=== PATIENT | male | born 1945 | race Caucasian/White ===

== ENCOUNTER 2021-02-20 12:11 | Day surgery (SDC) | payer MEDICARE, OTHER ==
[~2021-02-20] VITALS: Ht 188 cm; Wt 103.7 kg
[2021-02-20] MEDS ORDERED: ASPI81CH (12:41)
[2021-02-20] MEDS ORDERED: ABAT250V (12:42)
[2021-02-20] MEDS ORDERED: ATOR10 (12:42)
[2021-02-20] MEDS ORDERED: ST. JOSEPH ASPI81 MG (12:44)
[2021-02-20] MEDS ORDERED: Cleocin HCl150 MG (12:45)
[2021-02-20] MEDS ORDERED: DICLOFENAC SOD100 GM (12:46)
[2021-02-20] MEDS ORDERED: DOXE10 (12:47)
[2021-02-20] MEDS ORDERED: Norco 10-325 T1 EACH (12:48)
[2021-02-20] MEDS ORDERED: HYDCHL25 (12:48)
[2021-02-20] MEDS ORDERED: GABA300 (12:48)
[2021-02-20] MEDS ORDERED: INSULANI (12:49)
[2021-02-20] MEDS ORDERED: LANS30EC (12:49)
[2021-02-20] MEDS ORDERED: Amitiza8 MCG (12:49)
[2021-02-20] MEDS ORDERED: MORP15ER (12:50)
[2021-02-20] MEDS ORDERED: METF500 (12:50)
[2021-02-20] MEDS ORDERED: NOVOLOG FL100 UNIT/2 (12:50)
[2021-02-20] MEDS ORDERED: VALS80 (12:51)
== END 2021-02-20 13:46 | disposition home or self-care (01) ==
LOC: ORSCSDS 12:11
PROVIDERS: Student in an Organized Health Care Education/Training Program
PROC: 0DB58ZX Excision of Esophagus, Via Natural or Artificial Opening Endoscopic, Diagnostic (ICD-10-PCS; principal; 2021-02-20 13:30)
DX: K22.70 Barrett's esophagus without dysplasia (principal); K21.9 Gastro-esophageal reflux disease without esophagitis; K44.9 Diaphragmatic hernia without obstruction or gangrene; E11.9 Type 2 diabetes mellitus without complications; I10 Essential (primary) hypertension; G47.33 Obstructive sleep apnea (adult) (pediatric); E66.9 Obesity, unspecified; Z68.31 Body mass index [BMI] 31.0-31.9, adult; Z79.4 Long term (current) use of insulin; Z79.899 Other long term (current) drug therapy
CPT/HCPCS: 82947; 88305; J2704; J7120

== ENCOUNTER → 2021-05-10 | Outpatient (CLI) | payer MEDICARE, OTHER ==
[~2021-05-10] MED LIST: ABAT250V; ASPI81CH; ATOR10; Amitiza8 MCG; Cleocin HCl150 MG; DICLOFENAC SOD100 GM; DOXE10; GABA300; HYDCHL25; INSULANI; LANS30EC; METF500; MORP15ER; NOVOLOG FL100 UNIT/2; Norco 10-325 T1 EACH; ST. JOSEPH ASPI81 MG; VALS80
== END ==
LOC: LAB SHORT 14:00 → LAB 14:00
DX: R07.89 Other chest pain (principal)
CPT/HCPCS: 84484

== ENCOUNTER 2021-08-27 09:17 | Day surgery (SDC) | payer MEDICARE, OTHER ==
[~2021-08-27] VITALS: Ht 185.4 cm; Wt 105.0 kg
[~2021-08-27 09:17] MED LIST changes: -Amitiza8 MCG; +Amitiza8 MCG PO; +BASAGLAR K100 UNIT/1 SC; -METF500; +METF500 PO; -MORP15ER; +MORP15ER PO; +NITR.4SL SL; +PROZAC40 MG PO; -VALS80; +VALS80 PO
--- NOTE | 2021-08-27 13:23 | NUR ---
10CC AIR REMOVED FROM R WRIST TR BAND. -BLEEDING OR SWELLING.
--- NOTE | 2021-08-27 14:13 | NUR ---
R WRIST TR BAND REMOVED. PUNCTURE AREA CLEANED /C NS AND CLOTH DOT DRSG PLACED. R LOWER ARM SPLINT REAPPLIED.
--- NOTE | 2021-08-27 14:14 | NUR ---
PT AND VERBALIZED UNDERSTANDING OF WRITTEN AND VERBAL D/C INST. IV REMOVED. PT TAKEN OUT OF THE HRT CENTER VIA W/C.
== END 2021-08-27 14:15 | disposition home or self-care (01) ==
LOC: MHTC 09:17
DX: I25.118 Atherosclerotic heart disease of native coronary artery with other forms of angina pectoris (principal); I10 Essential (primary) hypertension; E11.9 Type 2 diabetes mellitus without complications; E78.5 Hyperlipidemia, unspecified; N40.0 Benign prostatic hyperplasia without lower urinary tract symptoms; Z79.82 Long term (current) use of aspirin; Z79.84 Long term (current) use of oral hypoglycemic drugs
CPT/HCPCS: 76937; 93454; 99152; 99153; C1769; C1887; C1894; J1200; J1644; J1720; J2250; J3010; J7030; J7050; Q9967

== ENCOUNTER → 2021-10-23 | Outpatient (CLI) | payer MEDICARE, OTHER | END | disposition home or self-care (01) | LOC: LAB SHORT 15:20 | DX: L97.509 Non-pressure chronic ulcer of other part of unspecified foot with unspecified severity (principal) | CPT/HCPCS: 87070; 87075; 87077; 87147; 87186; 87205 ==

== ENCOUNTER → 2023-09-09 | Outpatient (CLI) | payer MEDICARE, OTHER | LOC: LAB SHORT 10:10 → LAB 10:10 | DX: M96.0 Pseudarthrosis after fusion or arthrodesis (principal); R20.0 Anesthesia of skin; E11.51 Type 2 diabetes mellitus with diabetic peripheral angiopathy without gangrene; E11.42 Type 2 diabetes mellitus with diabetic polyneuropathy | CPT/HCPCS: 88300 ==

== ENCOUNTER 2024-05-25 13:03 | Day surgery (SDC) | payer MEDICARE, OTHER ==
[~2024-05-25] VITALS: Ht 185.4 cm; Wt 97.5 kg
[2024-05-25 13:42] VITALS: BP 137/67
== END 2024-05-25 14:00 | disposition home or self-care (01) ==
LOC: ORSCSDS 13:03
DX: K22.70 Barrett's esophagus without dysplasia (principal); Z53.9 Procedure and treatment not carried out, unspecified reason
CPT/HCPCS: 82947

== ENCOUNTER 2024-06-01 08:19 | Day surgery (SDC) | payer MEDICARE, OTHER ==
[~2024-06-01] VITALS: Ht 185.4 cm; Wt 97.2 kg
[~2024-06-01 08:19] MED LIST changes: +Lactated Ringer's 1,000 ML IV ONE
[2024-06-01] MEDS ORDERED: Lactated Ringer's 1,000 ML IV ONE (09:18)
[2024-06-01] MEDS ORDERED: propofoL 50 ML IV ONE (09:24)
[2024-06-01 10:32] VITALS: BP 111/67
== END 2024-06-01 10:20 | disposition home or self-care (01) ==
LOC: ORSCSDS 08:19
PROVIDERS: Internal Medicine Gastroenterology
PROC: 0DB58ZX Excision of Esophagus, Via Natural or Artificial Opening Endoscopic, Diagnostic (ICD-10-PCS; principal; 2024-06-01 09:30)
DX: K22.70 Barrett's esophagus without dysplasia (principal); G47.33 Obstructive sleep apnea (adult) (pediatric); I10 Essential (primary) hypertension; E11.9 Type 2 diabetes mellitus without complications; K21.9 Gastro-esophageal reflux disease without esophagitis; Z79.82 Long term (current) use of aspirin; Z79.4 Long term (current) use of insulin; Z79.84 Long term (current) use of oral hypoglycemic drugs; Z79.899 Other long term (current) drug therapy
CPT/HCPCS: 82947; 88305; J2704; J7120

== ENCOUNTER → 2024-07-26 | Outpatient (CLI) | payer MEDICARE ==
[~2024-07-26] MED LIST changes: -Lactated Ringer's 1,000 ML IV ONE
[2024-07-26 20:01] LABS: CHOL/HDL RATIO 2.3; Cholesterol 133 mg/dL (50-200); HDL Cholesterol 58 mg/dL (>39); LDL/HDL RATIO 0.9; Low Density Lipoprotein Chol 50 mg/dL (0-110); Triglycerides 124 mg/dL (30-160); Very Low Density Lipoprot Chol 24 mg/dL (6-32)
== END ==
LOC: LAB SHORT 18:06 → LAB 18:06
PROVIDERS: Student in an Organized Health Care Education/Training Program
DX: E11.9 Type 2 diabetes mellitus without complications (principal)
CPT/HCPCS: 80061

== ENCOUNTER 2025-05-23 15:25 | Emergency (ER) | payer MEDICARE, OTHER ==
[~2025-05-23] VITALS: Ht 185.4 cm; Wt 100.2 kg
[2025-05-23 16:13] LABS: BASOPHILS ABSOLUTE AUTO 0.05 K/mm3 (0.00-0.23); BASOPHILS PERCENT AUTO 1 % (0-2); EOSINOPHILS ABSOLUTE AUTO 0.34 K/mm3 (0.00-0.68); EOSINOPHILS PERCENT AUTO 4 % (0-6); Hematocrit 36.7 % (37.0-53.0); Hemoglobin 12.2 g/dL (13.5-17.5); IMMATURE GRAN ABSOLUTE AUTO 0.01 K/mm3 (0.00-0.10); IMMATURE GRAN PERCENT AUTO 0 % (0-1); LYMPHOCYTES ABSOLUTE AUTO 2.19 K/mm3 (0.84-5.20); LYMPHOCYTES PERCENT AUTO 28 % (21-46); MONOCYTES ABSOLUTE AUTO 0.34 K/mm3 (0.16-1.47); MONOCYTES PERCENT AUTO 4 % (4-13); Mean Corpuscular HGB Conc 33.2 g/dL (31.5-36.5); Mean Corpuscular Volume 83 fL (80-100); NEUTROPHILS ABSOLUTE AUTO 4.98 K/mm3 (1.96-9.15); NEUTROPHILS PERCENT AUTO 63 % (41-73); NRBC ABSOLUTE 0.00 K/mm3 (0.00-0.02); NRBC Auto 0.0 /100 WBC (0.0-0.2); Platelet Count 187 K/mm3 (150-400); RDW Coefficient Variation 14.0 % (11.7-14.2); RDW Standard Deviation 42.3 fL (35.1-46.3)
[2025-05-23 16:44] LABS: Alanine Aminotransfer (ALT/SGP 15.0 U/L (12-78); Albumin, Blood 3.6 g/dL (3.4-5.0); Albumin/Globulin Ratio 0.9 (0.8-1.8); Anion Gap 5.0 mmol/L (3-11); Aspartate Aminotrans (AST/SGOT 9.0 U/L (12-37); Bilirubin, Total 0.3 mg/dL (0.1-1.0); Blood Urea Nitrogen 17.0 mg/dL (8-24); CO2, Blood 29.0 mmol/L (21-32); Calcium, Blood 8.9 mg/dL (8.5-10.1); Chloride, Blood 103.0 mmol/L (98-108); Creatinine, Blood 0.8 mg/dL (0.60-1.20); Globulin, Blood 4.2 g/dL (2.2-4.0); Glucose, Blood 281.0 mg/dL (70-99); Potassium, Blood 3.9 mmol/L (3.5-5.5); Sodium, Blood 133.0 mmol/L (136-145); Total Protein, Blood 7.8 g/dL (6.4-8.2)
[2025-05-23 19:11] VITALS: BP 139/80
== END 2025-05-23 19:15 | disposition home or self-care (01) ==
LOC: ER 15:25
PROVIDERS: Student in an Organized Health Care Education/Training Program
DX: K92.1 Melena (principal); K21.9 Gastro-esophageal reflux disease without esophagitis; Z87.891 Personal history of nicotine dependence; Z79.82 Long term (current) use of aspirin; Z79.4 Long term (current) use of insulin; Z79.899 Other long term (current) drug therapy
CPT/HCPCS: 80053; 82272; 85025; 86850; 86900; 86901; 99283